=== PATIENT | female | born 2000 | race African-American/Black ===

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

== ENCOUNTER 2018-05-26 17:48 | Emergency (ER) | payer OTHER ==
[~2018-05-26] VITALS: Ht 165.1 cm; Wt 73.0 kg
[2018-05-26] MEDS ORDERED: IPRATROPIUM BROMIDE (0.02%) 0.5MG/2.5ML NEB HHN STA (20:39)
[2018-05-26] MEDS ORDERED: PREDNISONE 20MG TABLET PO STA (20:39)
[2018-05-26] MEDS ORDERED: ALBUTEROL (0.083%) 2.5MG/3ML NEB HHN STA (20:39)
[2018-05-26 21:36] VITALS: BP 144/76
== END 2018-05-26 21:40 | disposition home or self-care (01) ==
LOC: ER 21:33
DX: J45.901 Unspecified asthma with (acute) exacerbation (principal); J20.9 Acute bronchitis, unspecified
CPT/HCPCS: 94640; 99283; J7512; J7611

== ENCOUNTER 2020-11-08 13:40 | Emergency (ER) | payer OTHER ==
[~2020-11-08] VITALS: Ht 165.1 cm; Wt 93.0 kg
[2020-11-08] MEDS ORDERED: DEXAMETHASONE 10 MG/ML VIAL IM ONE (14:15)
[2020-11-08] MEDS ORDERED: IPRATROPIUM/ALBUTEROL 0.5-3(2.5)MG/3ML NEB HHN ONE ×3 (14:15→15:45)
[2020-11-08] MEDS ORDERED: IPRATROPIUM/ALBUTEROL 0.5-3(2.5)MG/3ML NEB ONE (14:17)
[2020-11-08] MEDS ORDERED: MED4 MT (14:24)
[2020-11-08 14:50] VITALS: BP 120/74
[2020-11-08] MEDS ORDERED: LORAZEPAM 0.5MG TABLET PO ONE (15:00)
[2020-11-08] MEDS ORDERED: ALBU90AE INH (15:52)
[2020-11-08] MEDS ORDERED: ALBU05 NEB (16:20)
== END 2020-11-08 16:15 | disposition home or self-care (01) ==
LOC: ER 13:40
DX: J45.901 Unspecified asthma with (acute) exacerbation (principal)
CPT/HCPCS: 71045; 94640; 96372; 99284; J1100; Z7610

== ENCOUNTER 2022-12-08 17:24 | Emergency (ER) | payer OTHER ==
[~2022-12-08] VITALS: Ht 165.1 cm; Wt 117.9 kg
[~2022-12-08 17:24] MED LIST: ALBU05 NEB; ALBU90AE INH; MED4 MT
[2022-12-08] MEDS ORDERED: ALBUTEROL (0.083%) 2.5MG/3ML NEB HHN STA ×2 (18:12→20:55)
[2022-12-08] MEDS ORDERED: PREDNISONE 20MG TABLET PO STA (18:12)
[2022-12-08] MEDS ORDERED: IPRATROPIUM BROMIDE (0.02%) 0.5MG/2.5ML NEB HHN STA (18:12)
[2022-12-08] MEDS ORDERED: ALBU05 NEB (18:18)
[2022-12-08] MEDS ORDERED: P20 MT (18:18)
[2022-12-08] MEDS ORDERED: ALBU6.7H3 INH (18:18)
[2022-12-08] MEDS ORDERED: PREDNISONE 20MG TABLET PO NR (19:30)
[2022-12-08 19:39] VITALS: PULSE 83; RESP 24; O2SAT 99
[2022-12-08] MEDS ORDERED: METHYLPREDNISOLONE SOD SUCC 40MG VIAL IM ONE (21:00)
[2022-12-08] MEDS ORDERED: METHYLPREDNISOLONE SOD SUCC 125MG VIAL IM NR ×2 (21:15→21:45)
[2022-12-08 22:01] VITALS: BP 153/99; PULSE 99; RESP 19; TEMP 98.7
== END 2022-12-08 22:02 | disposition home or self-care (01) ==
LOC: ER 17:24
DX: J45.901 Unspecified asthma with (acute) exacerbation (principal); Z79.899 Other long term (current) drug therapy
CPT/HCPCS: 94640; 96372; 99283; J7512; J2930; Z7610 ×4; J2920

== ENCOUNTER 2023-05-08 15:05 | Emergency (ER) | payer SELFPAY ==
[~2023-05-08] VITALS: Ht 165.1 cm; Wt 111.0 kg
[~2023-05-08 15:05] MED LIST changes: +ALBU6.7H3 INH; +P20 MT
[2023-05-08 15:12] VITALS: BP 128/90; TEMP 98; O2SAT 98
[2023-05-08] MEDS ORDERED: ALBUTEROL (0.083%) 2.5MG/3ML NEB HHN ONE ×2 (16:30→18:15)
[2023-05-08] MEDS ORDERED: PREDNISONE 20MG TABLET PO ONE (16:30)
[2023-05-08 17:37] VITALS: PULSE 100; RESP 22
[2023-05-08] MEDS ORDERED: P50 MT (17:40)
[2023-05-08] MEDS ORDERED: ALBU18HF2 IH (17:40)
[2023-05-08] MEDS ORDERED: ALBU05 NEB (18:12)
[2023-05-08 18:31] VITALS: PULSE 100; RESP 24
== END 2023-05-08 19:12 | disposition home or self-care (01) ==
LOC: ER 15:05
DX: J45.901 Unspecified asthma with (acute) exacerbation (principal); Z79.899 Other long term (current) drug therapy
CPT/HCPCS: 71045; 94640; 99284; J7512; Z7610 ×3

== ENCOUNTER 2024-02-24 09:15 | Emergency (ER) | payer MEDICAID ==
[~2024-02-24] VITALS: Ht 172.7 cm; Wt 100.0 kg
[~2024-02-24 09:15] MED LIST changes: +ALBU18HF2 IH; -MED4 MT; +METH4TAB95 MT; +P50 MT
[2024-02-24] MEDS: IPRATROPIUM BROMIDE (0.02%) 0.5MG/2.5ML NEB HHN STA (09:55)
[2024-02-24] MEDS ORDERED: PREDNISONE 20MG TABLET PO STA (09:55)
[2024-02-24 10:00] VITALS: PULSE 72; RESP 18; O2SAT 97
[2024-02-24] MEDS: ALBUTEROL (0.083%) 2.5MG/3ML NEB HHN SCH (10:27)
[2024-02-24] MEDS: ALBUTEROL (0.083%) 2.5MG/3ML NEB HHN ONE (10:45)
[2024-02-24 11:00] VITALS: PULSE 74; RESP 16; O2SAT 98
[2024-02-24] MEDS: PREDNISONE 20MG TABLET PO NR (12:09)
[2024-02-24] MEDS ORDERED: ALBU2.5V13 NEB (13:22)
[2024-02-24] MEDS ORDERED: P50 MT (13:22)
[2024-02-24] MEDS ORDERED: ALBU90AE INH (13:22)
[2024-02-24 13:33] VITALS: BP 132/80; PULSE 70; RESP 16; TEMP 37.05852; O2SAT 99
== END 2024-02-24 13:35 | disposition home or self-care (01) ==
LOC: ER 09:15
DX: J45.901 Unspecified asthma with (acute) exacerbation (principal); Z79.899 Other long term (current) drug therapy; Z68.33 Body mass index [BMI] 33.0-33.9, adult
CPT/HCPCS: 71045; 94640; 99284; J7512; Z7610 ×3

== ENCOUNTER 2025-02-09 16:25 | Inpatient (IN) | payer MEDICAID ==
[~2025-02-09] VITALS: Ht 165.1 cm; Wt 108.9 kg
[~2025-02-09 16:25] MED LIST changes: -ALBU18HF2 IH; -ALBU6.7H3 INH; -ALBU90AE INH; +FLUT12AE21 HHN; -METH4TAB95 MT; -P20 MT; -P50 MT; +PRED10TA23 PO
[2025-02-09] MEDS ORDERED: AZITHROMYCIN 500MG/250ML 250 ML IV SCH (17:00)
[2025-02-09] MEDS ORDERED: METHYLPREDNISOLONE 40MG/ML INJ IV ONE (17:00)
[2025-02-09] MEDS: AZITHROMYCIN 500MG/250ML 250 ML IV SCH (17:17)
[2025-02-09] MEDS: METHYLPREDNISOLONE SOD SUCC 125MG/2ML (ACT-O-VIAL) IV SCH (17:17)
[2025-02-09] MEDS: ALBUTEROL (0.083%) 2.5MG/3ML NEB HHN ONE ×2 (17:26→18:32)
[2025-02-09 17:32] LABS: HEMATOCRIT. 28.5 % (36.0-48.0); HEMOGLOBIN. 8.7 g/dL (12.0-16.0); MEAN PLATELET VOLUME 7.0 fl (7.4-10.4); PLATELET 465 x1000/uL (130-400); RED BLOOD CELL COUNT 4.21 mill/uL (4.2-5.4); RED CELL DISTRIBUTION WIDTH 17.1 % (11.6-14.6)
[2025-02-09 17:47] LABS: CREATININE 0.8 mg/dL (0.6-1.0); UREA NITROGEN BLOOD 6 mg/dL (9-23)
[2025-02-09 17:48] LABS: TROPONIN I HIGH SENSITIVITY < 4 ng/L (3.0-34)
[2025-02-09 17:49] LABS: ASPARTATE AMINOTRANSFERASE 15 IU/L (<34); BILIRUBIN DIRECT 0.2 mg/dL (<=3.0); BILIRUBIN TOTAL 0.5 mg/dL (0.1-1.0); PROTEIN TOTAL 7.1 g/dL (6.0-8.3)
[2025-02-09 17:50] LABS: B-HCG QUANTITATIVE < 1 mIU/mL (<6)
[2025-02-09 17:59] LABS: EOSINOPHILS % MANUAL 16.0 % (0.0-5.0); LYMPHOCYTES % MANUAL 40.0 % (20.0-60.0); MONOCYTES % MANUAL 9.0 % (2.0-8.0); NEUTROPHILS % MANUAL 35.0 % (45.0-75.0); PLATELET ESTIMATE INCREASED
[2025-02-09] MEDS ORDERED: P50 MT (18:18)
[2025-02-09] MEDS ORDERED: ALBU05 NEB (18:18)
[2025-02-09] MEDS ORDERED: ALBU18HF2 IH (18:18)
[2025-02-09 18:32] VITALS: PULSE 96; RESP 18
[2025-02-09] MEDS: MAGNESIUM 2 G PREMIX 50 ML IV ONE (19:35)
[2025-02-09] MEDS: ONDANSETRON HCL 4MG/2ML INJ IV ONE (19:35)
[2025-02-09] MEDS: KETOROLAC 15MG/ML VIAL IV ONE (19:36)
[2025-02-09 23:44] VITALS: BP 125/69; PULSE 86; RESP 19; TEMP 36.6404
[2025-02-09] MEDS ORDERED: PNEUMOCOCCAL 20-VAL CONJ-DIP CRM 0.5ML IM ONE (23:45)
[2025-02-10] VITALS (10 sets, daily range): BP systolic 120–129; BP diastolic 58–92; PULSE 66–98; RESP 16–20; TEMP 36.3–36.9; O2SAT 96–99
[2025-02-10] MEDS ORDERED: ACETAMINOPHEN 325MG TABLET PO PRN (00:45)
[2025-02-10] MEDS ORDERED: CLONIDINE 0.1MG TABLET PO PRN (00:45)
[2025-02-10] MEDS ORDERED: MAGNESIUM/ALUMINUM HYDROXIDE/SIMETHICONE 30ML UDC PO PRN (00:45)
[2025-02-10] MEDS ORDERED: ZOLPIDEM TARTRATE 5MG TABLET PO PRN (00:45)
[2025-02-10] MEDS: METHYLPREDNISOLONE SOD SUCC 40MG/ML (ACT-O-VIAL) IV SCH (01:56)
[2025-02-10] MEDS: HYDROCODONE/ACETAMINOPHEN 5/325MG TABLET PO PRN (02:09)
[2025-02-10] MEDS: IPRATROPIUM/ALBUTEROL 0.5-3(2.5)MG/3ML NEB NEB SCH (03:34)
[2025-02-10] MEDS: CEFTRIAXONE 1GM/50ML 50 ML IV SCH (04:33)
[2025-02-10] MEDS: PANTOPRAZOLE SODIUM 40 MG/VIAL IV SCH (08:09)
[2025-02-10 08:22] LABS: HEPATITIS C AB NON REACTIVE (Neg) (Negative)
[2025-02-10] MEDS: ENOXAPARIN 30MG/0.3ML SYR SUBCUT SCH (09:00)
[2025-02-10] MEDS: ONDANSETRON HCL 4MG/2ML INJ IV PRN (10:30)
[2025-02-10 16:32] LABS: VITAMIN B12 SERUM 479 pg/mL (211-911)
[2025-02-10] MEDS: MONTELUKAST SODIUM 10MG TABLET PO SCH (17:51)
[2025-02-10] MEDS: AZITHROMYCIN 500MG/250ML 250 ML IV SCH (17:52)
[2025-02-10] MEDS: ASCORBIC ACID 250 MG TABLET PO SCH (20:11)
[2025-02-11] VITALS (10 sets, daily range): BP systolic 98–138; BP diastolic 44–78; PULSE 51–90; RESP 16–20; TEMP 36.4–36.7; O2SAT 95–99
[2025-02-11] MEDS: FERROUS SULFATE 325MG TABLET PO SCH (07:52)
[2025-02-11] MEDS ORDERED: FERR325T23 MT (09:39)
[2025-02-11] MEDS ORDERED: ASCO-339 MT (09:39)
[2025-02-11] MEDS ORDERED: P20 PO (09:40)
[2025-02-11] MEDS ORDERED: ALBU90AE INH (12:07)
[2025-02-11 12:24] LABS: HEMATOCRIT. 25.9 % (36.0-48.0); HEMOGLOBIN. 7.8 g/dL (12.0-16.0); MEAN PLATELET VOLUME 7.2 fl (7.4-10.4); PLATELET 430 x1000/uL (130-400); RED BLOOD CELL COUNT 3.82 mill/uL (4.2-5.4); RED CELL DISTRIBUTION WIDTH 17.1 % (11.6-14.6)
[2025-02-11 13:01] LABS: CREATININE 0.8 mg/dL (0.6-1.0); UREA NITROGEN BLOOD 8 mg/dL (9-23)
[2025-02-11 13:03] LABS: ASPARTATE AMINOTRANSFERASE 11 IU/L (<34); BILIRUBIN TOTAL 0.4 mg/dL (0.1-1.0); PROTEIN TOTAL 6.9 g/dL (6.0-8.3)
[2025-02-11 14:10] LABS: BAND% 1.0 % (1.0-6.0); LYMPHOCYTES % MANUAL 10.0 % (20.0-60.0); MONOCYTES % MANUAL 3.0 % (2.0-8.0); NEUTROPHILS % MANUAL 86.0 % (45.0-75.0)
[2025-02-11 14:11] LABS: PLATELET ESTIMATE INCREASED
== END 2025-02-11 16:25 | disposition home or self-care (01) | DRG 141 ==
LOC: ER 16:25 → 8EST 19:02 → EDBEDREQTM 19:48 → EDBEDREQSVC 19:48 → EDBEDREQ 19:48
PROVIDERS: ADMIT Internal Medicine; ATTEND Internal Medicine
DX: J45.901 Unspecified asthma with (acute) exacerbation (principal); D50.9 Iron deficiency anemia, unspecified; G43.909 Migraine, unspecified, not intractable, without status migrainosus; Z79.899 Other long term (current) drug therapy; Z87.891 Personal history of nicotine dependence; Z88.0 Allergy status to penicillin
CPT/HCPCS: 36415; 71045; 80048; 80053; 80076; 82607; 82728; 83540; 83550; 83735; 83880; 84443; 84484; 84702; 85025; 86705; 87340; 93970; 94070; 94640; 99285; J0456; J0696; J1650; J1885; J2405; J2470; J2919; J3475